=== PATIENT | female | born 1965 | race Caucasian/White ===

== ENCOUNTER 2018-02-13 07:22 | Day surgery (SDC) | payer OTHER ==
[~2018-02-13] VITALS: Ht 154.9 cm; Wt 82.7 kg
[2018-02-13] MEDS ORDERED: Omeprazole20 M1 PO (08:28)
[2018-02-13] MEDS ORDERED: ASPI325 PO (08:29)
[2018-02-13] MEDS ORDERED: LISI20 PO (08:31)
[2018-02-13] MEDS ORDERED: ATOR20 PO (08:31)
[2018-02-13] MEDS ORDERED: HYDCHL12.5 PO (08:32)
== END 2018-02-13 10:21 | disposition home or self-care (01) ==
LOC: ORSCSDS 07:22
PROVIDERS: Orthopaedic Surgery
PROC: 01N50ZZ Release Median Nerve, Open Approach (ICD-10-PCS; principal; 2018-02-13 09:00)
DX: G56.01 Carpal tunnel syndrome, right upper limb (principal); K21.9 Gastro-esophageal reflux disease without esophagitis; I10 Essential (primary) hypertension; F17.210 Nicotine dependence, cigarettes, uncomplicated; Z79.82 Long term (current) use of aspirin; Z79.899 Other long term (current) drug therapy
CPT/HCPCS: J0690; J2250

== ENCOUNTER → 2018-12-30 | Outpatient (CLI) | payer OTHER ==
[~2018-12-30] MED LIST: ASPI325 PO; ATOR20 PO; HYDCHL12.5 PO; LISI20 PO; Omeprazole20 M1 PO
[2018-12-30 14:36] LABS: Source, Urine Clean Catch
[2018-12-30 18:30] LABS: Bilirubin, Urine Neg (Neg); Blood, Urine 5+ (Neg); Glucose Qualitative, Urine Neg (Neg); Ketones, Urine Neg (Neg); Leukocyte Esterase, Urine 3+ (Neg); Nitrite, Urine Neg (Neg); Protein, Urine 3+ (Neg); Specific Gravity, Urine 1.015 (1.003-1.022); Urobilinogen, Urine NORM (Normal)
[2018-12-30 18:41] LABS: Appearance, Urine Cloudy (Clear); Color, Urine Yellow (P-Yellow); White Blood Cells, Urine TNTC /hpf (0-5)
[2018-12-30 18:42] LABS: Bacteria Many /hpf; Squamous Epithelial Cells Few /hpf (Few)
== END | disposition home or self-care (01) ==
LOC: LAB SHORT 14:33 → LAB 14:33
PROVIDERS: Nurse Practitioner Family
DX: R31.0 Gross hematuria (principal); R30.0 Dysuria
CPT/HCPCS: 81001; 87077; 87086; 87186

== ENCOUNTER → 2019-01-19 | Outpatient (CLI) | payer OTHER | END | disposition home or self-care (01) | LOC: LAB SHORT 17:13 → LAB 17:13 | DX: L72.3 Sebaceous cyst (principal) | CPT/HCPCS: 87070; 87075; 87076; 87205 ==